=== PATIENT | female | born 1975 ===

== ENCOUNTER 2018-10-24 17:30 | Emergency (ER) | payer BC ==
[2018-10-24 17:43] VITALS: BP 152/86
[2018-10-24] MEDS ORDERED: NS 0.9% 1000 ML** 1,000 ML IV ONE (18:00)
--- NOTE | 2018-10-24 18:02 | UC ---
Headache HPI - HPI Summary HPI Summary: 43-year-old female comes in with a chief complaint of sudden onset of the worst headache of her life. Started a little bit after 5 PM today about 40 minutes ago. Headache started in the frontal area and has been moving over the top of her head to the back of her head. Worse is an 8 out of 10. Minimal nausea and no vision change no weakness no numbness. No difficulty with speech. Patient did take 2 tablets of a headache medication that have acetaminophen aspirin and caffeine. Headaches about 7 out of 10 right now. No prior history of similar headaches. - History Of Current Complaint Chief Complaint: UCHeadache Stated Complaint: HEADACHE Time Seen by Provider: 10/24/18 17:37 Pain Intensity: 7 - Allergies/Home Medications Allergies/Adverse Reactions: Allergies Allergy/AdvReac Type Severity Reaction Status Date / Time No Known Allergies Allergy Verified 10/24/18 17:43 Home Medications: Home Medications NK [No Home Medications Reported] 10/24/18 [History Confirmed 10/24/18] PMH/Surg Hx/FS Hx/Imm Hx Previously Healthy: Yes - Surgical History Surgical History: None - Family History Known Family History: Positive: Non-Contributory - Social History Alcohol Use: Weekly Substance Use Type: None Smoking Status (MU): Never Smoked Tobacco Review of Systems All Other Systems Reviewed And Are Negative: Yes Constitutional: Positive: Negative Skin: Positive: Negative Eyes: Positive: Negative ENT: Positive: Negative Respiratory: Positive: Negative Cardiovascular: Positive: Negative Gastrointestinal: Positive: Nausea Motor: Positive: Negative Neurovascular: Positive: Negative Musculoskeletal: Positive: Negative Neurological: Positive: Headache Psychological: Positive: Negative Is Patient Immunocompromised?: No Physical Exam Triage Information Reviewed: Yes Appearance: Well-Appearing, Well-Nourished, Pain Distress - mild/moderate Vital Signs: Initial Vital Signs Temp 96.4 F 10/24/18 17:41 Pulse 69 10/24/18 17:41 Resp 18 10/24/18 17:41 BP 152/86 10/24/18 17:41 Pulse Ox 100 10/24/18 17:41 Vital Signs Reviewed: Yes Eyes: Positive: Conjunctiva Clear, Other: - perrla/eomi, minimal photophobia Neck: Positive: Supple Respiratory: Positive: Lungs clear, Normal breath sounds, No respiratory distress Cardiovascular: Positive: RRR Musculoskeletal Exam: Normal Musculoskeletal: Positive: Strength Intact, ROM Intact Neurological Exam: Normal Neurological: Positive: Alert, Muscle Tone Normal Psychological Exam: Normal Psychological: Positive: Normal Response To Family, Age Appropriate Behavior Skin: Positive: Rashes Headache Course/Dx - Course Course Of Treatment: Transferred by ambulance to the Emergency Department for acute sudden onset of worse headache of life with no prior Hx of headaches. - Differential Dx/Diagnosis Provider Diagnosis: Headache Discharge - Sign-Out/Discharge Documenting (check all that apply): Patient Departure All imaging exams completed and their final reports reviewed: No Studies - Discharge Plan Condition: Stable Disposition: TRANS HIGHER LVL OF CARE FAC Referrals: No Primary Care Phys,NOPCP [Primary Care Provider] - - Billing Disposition and Condition Condition: STABLE Disposition: Trans Higher Lvl of Care Fac
== END 2018-10-24 18:38 | disposition short-term general hospital (02) ==
LOC: UCEAST 17:30
DX: R51 Headache (principal)
CPT/HCPCS: 99203; G0463

== ENCOUNTER 2018-10-24 18:46 | Emergency (ER) | payer BC ==
--- NOTE | 2018-10-24 18:54 | ED ---
Headache - HPI Summary HPI Summary: 43 year old F brought in by [facility] from [facility] to [facility] with a chief complaint of sudden onset frontal headache radiating to the back of her head as she was leaving her house at 17:10 today. The patient rates the pain _/10 in severity. Symptoms aggravated by nothing. Symptoms alleviated by nothing. Patient denies vision changes, slurred speech, weakness, nausea, vomiting. In between the time the patient left to go to [facility] and the time she was leaving the store, which was about 5 minutes, the headache developed into a pounding headache. Patient denies hx migraines and hx headaches. LNMP was a couple of week ago. - History Of Current Complaint Stated Complaint: HEADACHE PER EMS Hx Obtained From: Patient Onset/Duration: Started hours ago - 1709, Still Present Initially Headache Was: Mild Currently Pain Is: Severe Timing: Constant Character: Pressure Location of Headache: Frontal Radiates to: Back of head Aggravating Factor: Nothing Allevating Factors: Nothing Associated Signs And Symptoms: Negative - vision changes, slurred speech, weakness, nausea, vomiting - Allergies/Home Medications Allergies/Adverse Reactions: Allergies Allergy/AdvReac Type Severity Reaction Status Date / Time No Known Allergies Allergy Verified 10/24/18 17:43 PMH/Surg Hx/FS Hx/Imm Hx Previously Healthy: No Endocrine/Hematology History: Denies: Hx Diabetes Cardiovascular History: Denies: Hx Hypertension Neurological History: Denies: Hx Headaches, Hx Migraine - Surgical History Surgery Procedure, Year, and Place: [place] teeth - Family History Known Family History: Negative: Cardiac Disease, Hypertension, Diabetes - Social History Alcohol Use: Weekly Hx Substance Use: No Substance Use Type: Reports: None Hx Tobacco Use: No Smoking Status (MU): Never Smoked Tobacco Review of Systems Negative: Blurred Vision Negative: Vomiting, Nausea Neurological: Negative - slurred speech Positive: Headache. Negative: Weakness All Other Systems Reviewed And Are Negative: Yes Physical Exam - Summary Physical Exam Summary: Appearance: Well-appearing, Well-nourished, lying in bed comfortably Skin: Warm, dry, no obvious rash Eyes: sclera anicteric, no conjunctival pallor ENT: mucous membranes moist, pharynx appears normal Neck: Supple, nontender Respiratory: Clear to auscultation, no signs of respiratory distress Cardiovascular: Normal S1, S2. No murmurs. Normal distal pulses in tibial and radial bilaterally. Abdomen: Soft, nontender, normal active bowel sounds present Musculoskeletal: Normal, Strength/ROM Intact Neurological: A&Ox3, awake and alert, mentation is normal, speech is fluent and appropriate Psychiatric: affect is normal, does not appear anxious or depressed Triage Information Reviewed: Yes Vital Signs Reviewed: Yes Diagnostics - Laboratory Lab Statement: Any lab studies that have been ordered have been reviewed, and results considered in the medical decision making process. - CT Brain CT Interpretation Completed By: Radiologist Summary of CT Findings: No acute intracranial abnormality. ED physician has reviewed this report. Headache Course/Dx - Course Course Of Treatment: 43 year old F brought in by [facility] from [facility] to [facility] with a chief complaint of sudden onset frontal headache radiating to the back of her head as she was leaving her house at 17: 10 today. Patient denies vision changes, slurred speech, weakness, nausea, vomiting. In between the time the patient left to go to [facility] and the time she was leaving the store, which was about 5 minutes, the headache developed into a pounding headache. Patient denies hx migraines and hx headaches. Physical exam findings: Unremarkable. CT Brain reveals, per radiologist, No acute intracranial abnormality. CSF results with no significant abnormalities except for _. In the ED course, the patient was given Percocet. C7 analysis notes normal protein and glucose. Of special interest was the red blood cell count. It should be noted that this was a traumatic tap with blood obtained on initial pass. When I was able to get spinal fluid, it appeared clear and colorless. Her scalp analysis of tube 1 showed over 4000 red blood cells, but this dropped to approximately 270 on 24 which is consistent with a traumatic tap. With a normal CT scan and CSF as noted above, I believe the patient is safe for discharge and no specific follow-up was required lesser headache recurs. - Diagnoses Differential Diagnosis/HQI/PQRI: Epidural Hematoma, Meningitis, Migraine, Subarachnoid Hemorrhage, Tension Headache Provider Diagnoses: Headache Discharge - Sign-Out/Discharge Documenting (check all that apply): Patient Departure Patient Received Moderate/Deep Sedation with Procedure: No - Discharge Plan Condition: Good Disposition: HOME Patient Education Materials: Acute Headache (ED) Referrals: Domingo Ordonez MD [Medical Doctor] - If Needed Additional Instructions: The CT scan and spinal fluid analysis did not show any definite sign of bleeding , which for all intents and purposes rules out the serious condition of bleeding from an aneurysm. If you continue to have any trouble with headaches I would recommend you see a neurologist or primary care doctor, as other tests and treatments could be needed beyond what we do here in the ED. - Billing Disposition and Condition Condition: GOOD Disposition: Home - Attestation Statements Document Initiated by Sheba: Yes Documenting Scribe: Aida Smith Provider For Whom Sheba is Documenting (Include Credential): Ruel Cervantes MD Scribe Attestation: IAida, scribed for Ruel Cervantes MD on 10/29/18 at 1309. Scribe Documentation Reviewed: Yes Provider Attestation: The documentation as recorded by the Aida jamison accurately reflects the service I personally performed and the decisions made by me, Ruel Cervantes MD Status of Scribsherrie Document: Viewed
[2018-10-24] MEDS ORDERED: oxyCODONE/Acetamin 5/325 MG* TAB PO ONE (20:45)
[2018-10-24 21:09] LABS: Body Fluid Source Cerebral Spinal
[2018-10-24 21:11] LABS: Body Fluid Source Cerebral Spinal
[2018-10-24 21:25] LABS: CSF Glucose 62 mg/dL (40-70)
[2018-10-24 22:23] LABS: Body Fluid Mono 25 %
[2018-10-24 22:28] LABS: Body Fluid Mono 20 %
[2018-10-24] MEDS ORDERED: Prochlorperazine TAB* 10 MG PO ONE (22:39)
[2018-10-24 23:03] VITALS: BP 117/70
== END 2018-10-24 23:00 | disposition home or self-care (01) ==
LOC: ED 18:46
DX: R51 Headache (principal)
CPT/HCPCS: 36415; 70450; 82945; 84157; 87070; 87205; 89051; 99283; A9270-GY; Q0164

== ENCOUNTER 2019-04-22 13:06 | Observation (INO) | payer BC ==
[2019-04-22] MEDS ORDERED: Tetan/Diph/Pertus SYR(Tdap)* 0.5 ML SYR(BOOSTRIX) use SYR contains LATEX IM ONE (13:13)
[2019-04-22] MEDS ORDERED: ceFAZolin 1 GM ADVAN(*) 1 GM in NS 0.9% 50 ML* 50 ML IVPB ONE ×2 (13:14→14:28)
--- NOTE | 2019-04-22 13:14 | ED ---
Lower Extremity - HPI Summary HPI Summary: Patient is a 43-year-old female who presents emergency department for isolated right ankle injury that occurred just prior to arrival. Patient states she slipped down a few steps and twisted right ankle. Denies head injury or loss of consciousness. No significant past medical history. Unaware of last tetanus immunization. Denies numbness, tingling to right lower extremity. Associated symptoms of deformity and small wound. Symptoms are moderate in severity. Movement makes symptoms worse. Nothing makes symptoms better. - History of Current Complaint Stated Complaint: FALL- POSS RIGHT ANKLE FRACTURE PER EMS Time Seen by Provider: 04/22/19 13:13 Hx Obtained From: Patient - Allergies/Home Medications Allergies/Adverse Reactions: Allergies Allergy/AdvReac Type Severity Reaction Status Date / Time No Known Allergies Allergy Verified 10/24/18 17:43 PMH/Surg Hx/FS Hx/Imm Hx Previously Healthy: Yes Endocrine/Hematology History: Denies: Hx Diabetes Cardiovascular History: Denies: Hx Hypertension Neurological History: Denies: Hx Headaches, Hx Migraine - Surgical History Surgery Procedure, Year, and Place: [place] teeth - Family History Known Family History: Positive: Non-Contributory Negative: Cardiac Disease, Hypertension, Diabetes - Social History Occupation: Employed Full-time Lives: With Family Alcohol Use: Weekly Hx Substance Use: No Substance Use Type: Reports: None Hx Tobacco Use: No Smoking Status (MU): Never Smoked Tobacco Review of Systems Positive: Other - Right ankle injury Positive: Other - wound right ankle Neurological: Negative Negative: Weakness, Paresthesia, Numbness All Other Systems Reviewed And Are Negative: Yes Physical Exam Triage Information Reviewed: Yes Vital Signs Reviewed: Yes Appearance: Positive: Pain Distress - Patient sitting up in bed, appears in pain but nontoxic. Skin: Positive: Warm, Dry Head/Face: Positive: Normal Head/Face Inspection Eyes: Positive: Normal, EOMI Neck: Positive: Supple Musculoskeletal: Positive: Other - Deformity noted to right ankle. Roughly 1 cm wound noted over medial aspect of right ankle. Good palpable pedal pulse. + 2 capillary refill. No proximal leg pain. Neurological: Positive: Normal, CN Intact II-III Psychiatric: Positive: Affect/Mood Appropriate Procedures - Sedation Patient Received Moderate/Deep Sedation with Procedure: No Diagnostics - Laboratory Result Diagrams: 04/22/19 16:32 04/22/19 16:32 Lab Statement: Any lab studies that have been ordered have been reviewed, and results considered in the medical decision making process. Lower Extremity Course/Dx - Course Course Of Treatment: Pt. with likely fracture dislocation of right ankle. Neurovascularly intact. IV placed and pt. and IV pain medications and antibiotics for possible open fracture. Tetanus updated. Xray shows fracture/ dislocation. 1426: Ortho paged. 1450: Case discussed with [facility] Dr. Villanueva, he would like ct scan for further eval. He plans to take pt. to OR later today. Prerna Pozo, PAC with ortho. performed hematoma block, reduced and splinted ankle. Pt. admitted to ortho. service. - Diagnoses Differential Diagnosis/HQI/PQRI: Positive: Contusion, Dislocation, Fracture ( Closed), Sprain, Strain Provider Diagnoses: Open fracture of distal lateral malleolus of ankle Discharge ED - Sign-Out/Discharge Documenting (check all that apply): Patient Departure - Discharge Plan Condition: Stable Disposition: ADMITTED TO [facility] - Billing Disposition and Condition Condition: STABLE Disposition: Admitted to [facility] - Attestation Statements Provider Attestation: pt seen by midlevel provider independently, based on their assessment, it was not necessary to present the case to me but I was available for consultation. I did not form a physician-patient relationship with the patient. The chart however, has been reviewed. am signing this note strictly in an administrative capacity.
[2019-04-22] MEDS ORDERED: Morphine 4 MG/ML VIAL (1 ml) 4 MG/ML VIAL IV ONE ×2 (13:18→14:58)
[2019-04-22] MEDS ORDERED: Ondansetron INJ* 2 MG/ML VIAL IV ONE (13:18)
[2019-04-22] MEDS ORDERED: Lidocaine 1% MPF ** 5 ML VIAL INJ ONE (14:57)
[2019-04-22] MEDS ORDERED: Morphine INJ* 2 MG/ML 1 ML SYRINGE (TWO MG - NEW SYRINGE VERSION) IV PRN ×2 (15:58→18:32)
[2019-04-22] MEDS ORDERED: diPHENhydraMINE PO* 25 MG PO PRN ×2 (15:58→18:32)
[2019-04-22] MEDS ORDERED: Cyclobenzaprine TAB* 10 MG PO PRN ×2 (15:58→18:32)
[2019-04-22] MEDS ORDERED: Ondansetron ODT TAB* 4 MG PO PRN ×2 (15:58→18:32)
[2019-04-22] MEDS ORDERED: Magnesium Hydroxide LIQ* 30 ML UDC PO PRN ×2 (15:58→18:32)
[2019-04-22] MEDS ORDERED: traMADol TAB* 50 MG PO PRN ×2 (15:58→18:32)
[2019-04-22] MEDS ORDERED: diPHENhydraMINE IV* 50 MG/ML 1 ml VIAL (BENADRYL) IV PRN ×2 (15:58→18:32)
[2019-04-22] MEDS ORDERED: Ondansetron INJ* 2 MG/ML VIAL IV PRN ×2 (15:58→18:32)
[2019-04-22] MEDS ORDERED: oxyCODONE TAB* 5 MG TAB PO PRN ×4 (15:58→18:32)
[2019-04-22] MEDS ORDERED: Lactated Ringers 1000 ML Bag* 1,000 ML IV SCH ×2 (16:00→18:00)
[2019-04-22 16:41] LABS: ABS Lymphocytes 1.2 10^3/ul (1.0-4.8); ABS Monocytes 0.5 10^3/ul (0-0.8); ABS Neutrophils 6.7 10^3/ul (1.5-7.7); Eosinophil % 0.1 %; Hematocrit 38 % (35-47); Hemoglobin 13.2 g/dL (12.0-16.0); Lymphocyte % 14.3 %; Mean Corpuscular HGB Conc 35 g/dL (31-36); Mean Corpuscular Hemoglobin 31 pg (27-31); Mean Corpuscular Volume 90 fL (80-97); Mean Platelet Volume 8.2 fL (7.4-10.4); Platelet Count 263 10^3/uL (150-450); Red Blood Count 4.21 10^6 /uL (3.70-4.87); Red Cell Distribution Width 13 % (10-15); White Blood Count 8.5 10^3/uL (3.5-10.8)
[2019-04-22 16:52] LABS: INR 0.95 (0.82-1.09)
[2019-04-22 16:57] LABS: Anion Gap 9 mmol/L (2-11); BUN/Creatinine Ratio 14.1 (8-20); Blood Urea Nitrogen 11 mg/dL (6-24); CO2 Carbon Dioxide 24 mmol/L (22-32); Calcium 9.3 mg/dL (8.6-10.3); Chloride 102 mmol/L (101-111); EGFR African American 98.5 (>60); EGFR Non-African American 81.4 (>60); Glucose 97 mg/dL (70-100); Sodium 135 mmol/L (135-145)
--- NOTE | 2019-04-22 17:01 | HP ---
ADMISSION HISTORY AND PHYSICAL: DATE OF ADMISSION: 04/23/19 ATTENDING ORTHOPEDIC PROVIDER: Dr. Evan Villanueva.* (DICTATED BY ANTWAN MONTGOMERY) CHIEF COMPLAINT: Right open ankle fracture. HISTORY OF PRESENT ILLNESS: The patient is a 43-year-old female. She was at work today carrying boxes when she tripped and turned her right ankle resulting in immediate pain. She was brought to the emergency room at [facility]. She has deformity of her right ankle. She has sharp severe pain with question of open fracture, sharp severe pain of the right ankle without any radiation. She had no other injuries. She did not hit her head. She did not loose consciousness. She last ate food at 9 a.m. this morning. She last drank fluids at noon today. She has no history of heart attack, stroke, blood clot, or anesthesia complications. PAST MEDICAL HISTORY: Low vitamin D. PAST SURGICAL HISTORY: None. DRUG ALLERGIES: No known drug allergies. FAMILY HISTORY: The patient's family has no known adverse reactions from anesthesia. SOCIAL HISTORY: The patient lives alone with her cat. She works at [employer] in the [employer]. REVIEW OF SYSTEMS: General: No fever, chills, recent illness. HEENT: No headache, no head trauma. Cardiac: No chest pain. No history of ME. Respiratory: No shortness of breath. GI: No abdominal pain, nausea, vomiting , diarrhea. : No burning with urination. Musculoskeletal: Positive for right ankle pain. No other pain of extremities. Neuro: Denies any decreased sensation, numbness or tingling of extremities. PHYSICAL EXAM: GENERAL: Well appearing, no acute distress. VITAL SIGNS: Temperature 98.3, pulse rate 88, respiratory rate 18, oxygen saturation 99%, blood pressure 148/88. HEENT: Normocephalic, atraumatic. Extraocular movements intact. LUNGS: Clear to auscultation bilaterally. CARDIAC: S1, S2. Regular rate and rhythm. ABDOMEN: Bowel sounds normoactive, soft, nontender. No guarding. No rigidity. EXTREMITIES: Moves bilateral upper extremities and left lower extremity. Skin envelope is intact. Nontender to palpation. Able to flex and extend at all joints without pain. Right lower extremity: There is abrasion over medial malleolus. This was examined after hematoma block. I do not believe that the abrasion itself is open. There is a pinhole also over the medial malleolus. I cannot confirm whether this is open or not. Remainder of the right lower extremity skin envelope is intact. She is tender to palpation over the ankle and there is obvious deformity. She is nontender over the knee and hip. Able to flex and extend at MTPs, knee, and hip without any pain. DP pulses 2+. Sensation intact to light touch distally. Capillary refill less than 2 seconds distally. DIAGNOSTIC STUDIES/LAB DATA: Ankle x-ray shows fracture of the distal fibula with lateral subluxation of the talus to the talocrural joint. A CT scan was ordered to better characterize this. ASSESSMENT: Fracture of the distal fibula, lateral subluxation of the talus to talocrural joint, possible open fracture, cannot rule out open fracture. Procedure, timeout, and consent were performed with Dr. Mayer and ANTONIO Bolaños , present for both hematoma block and right ankle reduction. The patient was placed in a well-padded short leg splint after hematoma block was completed. Postreduction x-rays revealed satisfactory reduction. PLAN: The patient will be nonweightbearing. She will keep splint clean, dry, and intact. She will elevate and ice. She will be placed on Ancef 2 g IV q.8 hours. Preop testing includes CBC, BMP, INR, chest x-ray, EKG, and CT scan. The patient will go to the operating room today with Dr. Villanueva. ANTWAN MONTGOMERY [id number]/[facility] #: [id number] [facility] HEALTH SYSTEMDenise
--- NOTE | 2019-04-22 17:31 | HP ---
H&P (Free Text) History and Physical: Error
--- NOTE | 2019-04-22 17:45 | CONSULT ---
Consult Consult: Pulmonary consultation report Date of consultation: 04/22/2019 Consultation requested by :Prerna Pozo NP Reason for consultation: evaluation of abnormal chest x-ray History of present illness: Patient is 43-year-old obese female with no past medical history. Patient presented to the emergency room for evaluation of isolated right ankle injury. She slipped down a few steps while carrying weights and twisted right ankle. Denies injury to the head or loss of consciousness. Patient denied any trauma to her chest. Patient denies shortness of breath, chest pain, palpitations, dizziness. Patient denies numbness or tingling to the right lower extremity. Patient with pain in the extremity. Movement makes her pain worse. Further evaluation in the emergency room included lower extremities CT scan that showed open fracture of the distal fibula. Patient also had chest x-ray. I personally reviewed chest x-ray images and with the patient-patient noted to have elevated right hemidiaphragm. There is no associated atelectasis of the right lung. No evidence of pleural effusion noted. No evidence of rib fractures noted. PMHx: Low Vit D PSHx: [place] tooth extraction All: NKDA FHx: No h/o DM, CAD Social Hx: Lives alone at home. No smoking or drug abuse, occasional ETOH intake. ROS: All 12 systems reviewed and as per HPI Active Medications Generic Name Dose Route Start Last Admin Trade Name Freq PRN Reason Stop Dose Admin Acetaminophen 975 mg 04/22/19 22:00 Tylenol Tab* PO Q8HR GISSELL Bisacodyl 10 mg 04/24/19 15:58 Dulcolax Supp* RI DAILY PRN CONSTIPATION Cyclobenzaprine HCl 10 mg 04/22/19 15:58 Flexeril Tab* PO Q6H PRN SPASMS Diphenhydramine HCl 25 mg 04/22/19 15:58 Benadryl Iv* IV Q6H PRN PRURITIS Diphenhydramine HCl 25 mg 04/22/19 15:58 Benadryl Po* PO Q6H PRN PRURITIS Docusate Sodium 100 mg 04/22/19 21:00 Colace Cap* PO BID GISSELL Enoxaparin Sodium 40 mg 04/23/19 12:00 Lovenox(*) SUBCUT Q24H GISSELL Lactated Ringer's 1,000 mls @ 100 mls/hr 04/22/19 16:00 Lactated Ringers 1000 Ml Bag* IV PER RATE GISSELL Cefazolin Sodium 2 gm/ Sodium 100 mls @ 200 mls/hr 04/22/19 18:00 Chloride IVPB Q8H GISSELL Lactulose 30 ml 04/22/19 15:58 Lactulose* PO BID PRN CONSTIPATION Magnesium Hydroxide 30 ml 04/22/19 21:00 Milk Of Magnesia Liq* PO BID GISSELL Magnesium Hydroxide 30 ml 04/22/19 15:58 Milk Of Magnesia Liq* PO Q6H PRN CONSTIPATION Morphine Sulfate 2 mg 04/22/19 15:58 Morphine Inj (Syringe))* IV Q4H PRN Pain - Unrelieved Multivitamins 1 tab 04/23/19 09:00 Theragran Tab* PO DAILY GISSELL Ondansetron HCl 4 mg 04/22/19 15:58 Zofran Inj* IV Q6H PRN NAUSEA Ondansetron HCl 4 mg 04/22/19 15:58 Zofran Odt Tab* PO Q6H PRN NAUSEA Oxycodone HCl 10 mg 04/22/19 15:58 Roxycodone Tab* PO Q4H PRN Pain - Breakthrough Oxycodone HCl 5 mg 04/22/19 15:58 Roxycodone Tab* PO Q4H PRN Pain - Breakthrough Tramadol HCl 50 mg 04/22/19 15:58 Ultram* PO Q6HR PRN PAIN - MODERATE O/E: Pt in bed in NAD, RLE in cast Vital Signs Temp Pulse Resp BP Pulse Ox 98.3 F 74 16 148/92 97 04/22/19 13:12 04/22/19 15:06 04/22/19 15:02 04/22/19 15:35 04/22/19 15:06 HEENT: PERRLA Lungs: Decreased at rt base, no wheeze, no crackles CVS: S1, S2+ Abd: Obese, BS+ Ext: RLE in cast Neuro: No focal deficits Skin: No rash Laboratory Results - last 24 hr 04/22/19 04/22/19 04/22/19 16:32 16:32 16:32 WBC 8.5 RBC 4.21 Hgb 13.2 Hct 38 MCV 90 MCH 31 MCHC 35 RDW 13 Plt Count 263 MPV 8.2 Neut % (Auto) 78.9 Lymph % (Auto) 14.3 Lea % (Auto) 6.3 Eos % (Auto) 0.1 Baso % (Auto) 0.4 Absolute Neuts (auto) 6.7 Absolute Lymphs (auto) 1.2 Absolute Monos (auto) 0.5 Absolute Eos (auto) 0.0 Absolute Basos (auto) 0.0 Absolute Nucleated RBC 0.0 Nucleated RBC % 0.0 INR (Anticoag Therapy) 0.95 Sodium 135 Potassium 4.0 Chloride 102 Carbon Dioxide 24 Anion Gap 9 BUN 11 Creatinine 0.78 Est GFR ( Amer) 98.5 Est GFR (Non-Af Amer) 81.4 BUN/Creatinine Ratio 14.1 Glucose 97 Calcium 9.3 I/R: Patient with evidence of elevated right hemidiaphragm. I do not think it is resultant of current trauma. I think she might have had chronically elevated right hemidiaphragm which could be congenital. Unfortunately we do not have prior chest x-rays for comparison. She is asymptomatic at this time. She does not have complaints of chronic shortness of breath. She is not hypoxemic at rest, unable to ambulate her with her injusry. There is no evidence of pleural effusion and no reason to suspect hemothorax. Patient is to have surgical repair of the fracture I would not think she would be at higher risk for anesthesia complications. Would recommend monitoring of pulse ox postoperatively. She would need incentive spirometry post surgery. I would clear her from pulmonary perspective to undergo needed surgery. Please feel free t ocontact me iwth any questions or concerns.
[2019-04-22] MEDS ORDERED: ceFAZolin VIAL(*) 2 GM in NS 0.9% 100 ML* 100 ML IVPB SCH (18:00)
[2019-04-22] MEDS ORDERED: ceFAZolin 2 GM in NS PREMIX(*) 2 GM/100 ML BAG IVPB ONE (18:09)
[2019-04-22] MEDS ORDERED: Bupivacaine 0.25% SDV* 30 ML ONE (19:03)
--- NOTE | 2019-04-22 20:15 | PN ---
Progress Note - Progress Note Date of Service: 04/22/19 SOAP: See H&P by Prerna Pozo. I agree. Wrinkling of skin on exam in PACU. Discussed with patient and family planned surgery, risks and potential complications. To OR for I&D, ORIF versus external fixation lateral malleolus, unlikely but possible ORIF posterior malleolus and syndesmosis. Had I&D and closed reduction in ED, has DSD and splint in place and has been getting IV abx since the ED.
[2019-04-22] MEDS ORDERED: Magnesium Hydroxide LIQ* 30 ML UDC PO SCH (21:00)
[2019-04-22] MEDS ORDERED: Docusate CAP* 100 MG PO SCH (21:00)
[2019-04-22] MEDS ORDERED: fentaNYL* 50 MCG/ML 2 ML VIAL (100 MCG VIAL) ONE (21:05)
[2019-04-22] MEDS ORDERED: Midazolam* 1 MG/ML 2 ML VIAL (2 MG) ONE (21:05)
[2019-04-22] MEDS ORDERED: Dexamethasone IV* 4 MG/ML 1 ML (4 MG) ONE (21:05)
[2019-04-22] MEDS ORDERED: Propofol* 10 MG/ML 20 ML BTL ONE (21:05)
[2019-04-22 21:51] LABS: HCG Pregnancy < 0.60 mIU/mL
[2019-04-22] MEDS ORDERED: Acetaminophen TAB* 325 MG PO SCH (22:00)
[2019-04-22] MEDS ORDERED: Lidocaine 2% PF * 5 ML VIAL ONE (22:15)
[2019-04-23] MEDS: Acetaminophen TAB* 325 MG PO SCH ×5 (00:10→13:06)
[2019-04-23] MEDS ORDERED: Gabapentin CAP(*) 300 MG ONE (00:26)
[2019-04-23] MEDS ORDERED: ceFAZolin VIAL(*) 2 GM in NS 0.9% 100 ML* 100 ML IVPB SCH (02:00)
[2019-04-23] MEDS: Magnesium Hydroxide LIQ* 30 ML UDC PO SCH ×2 (03:47→08:30)
[2019-04-23] MEDS: Docusate CAP* 100 MG PO SCH ×2 (03:47→08:28)
[2019-04-23] MEDS: ceFAZolin* 2 GM* Q8H (Duplex) IVPB SCH ×2 (06:01→13:09)
[2019-04-23] MEDS ORDERED: Aspirin TAB* 325 MG PO SCH (09:00)
[2019-04-23] MEDS ORDERED: Vitamin THERAPEUTIC TAB PO SCH ×2 (09:00)
[2019-04-23 11:42] VITALS: BP 131/75
[2019-04-23] MEDS ORDERED: Enoxaparin(*) 40 MG/0.4 ML SYR SUBCUT SCH ×2 (12:00)
--- NOTE | 2019-04-23 23:52 | DS ---
Orthopedic Discharge Summary - Discharge Summary Date of Admission:04/23/19 Date of Discharge: 04/24/19 Date of Surgery: 04/23/19 Attending Orthopedic Provider: Evan Villanueva MD Pre-operative Diagnosis: Right ankle bimalleolar ankle fracture Operative Procedure: ORIF Right ankle fracture Disposition of Patient: Home Condition of Patient: Stable History: ABDI COOK is a 43 year old F Who fell on 04/23/19. She was brought to [facility] ED where Xrays showed an open bimalleolar fx. Patient underwent a closed reduction in the ED and a short leg splint was placed. She has elected to undergo an ORIF right ankle. Hospital Course: ABDI was admitted to [facility] on 04/23/19. Patient underwent a ORIF right ankle without complication followed by a brief recovery in PACU and transfer to the Short Stay Surgical Unit in stable condition. Physical therapy and occupational therapy also participated in this patients care. Post-op day 1: patient was alert and in no acute distress. Splint was clean, dry and intact. Operative extremity dorsiflexion and plantarflexion intact, sensation intact to light touch distally, She received 24 hours of IV Ancef. Patient was deemed to be medically and orthopedically stable for discharge. Physical therapy goals were met. She was discharged home on 04/24/19 in a stable condition. Home Medications Medication Instructions Recorded Confirmed Type Aspirin TAB* [Aspirin 325 MG TAB*] 325 mg PO BID tab 04/23/19 Rx oxyCODONE TAB* [Roxycodone TAB 5 5 mg PO Q4H PRN tab 04/23/19 Rx mg*] Discharge Instructions following Orthopedic Surgery: Activity: * Non Weight Bearing right lower extremity * Continue physical therapy and occupational therapy exercises as shown Wound care: * OK to shower on post-op day 3, no swimming, or submerging wound. Keep splint covered Call Orthopedic office for: * Increased drainage * Redness * Increased pain * Fever Go to ER with shortness of breath or chest pain. Diet: * Regular diet * Increase fluids and fiber to prevent constipation. * Continue to use stool softeners, call office if no bowel motion within 48 hours. Medications See Home Medication List in your packet for medications that you should take after discharge. DVT Prophylaxis: Aspirin Dosin mg twice a day Pain Control: Oxycodone Dosin mg 1-2 tabs by mouth every 4-6 hours as needed for pain. Maximum of 10 tabs per day. Antibiotic: Keflex 500mg TID for 7 days FOLLOW UP: Follow up with Dr. Villanueva Within 10-14 days, call for appointment Please call our office with any questions or concerns ([phone])
--- NOTE | 2019-04-23 23:52 | PN ---
Progress Note - Progress Note Date of Service: 04/23/19 SOAP: Subjective: Pt seen and examined at bedside. No complaint of pain. Denies CP, SOB, F/C. Vital Signs: Temp Pulse Resp BP Pulse Ox 98.7 F 95 18 131/75 97 04/23/19 11:41 04/23/19 11:41 04/23/19 13:09 04/23/19 11:41 04/23/19 11:41 Laboratory Last Values WBC 8.5 10^3/uL (3.5-10.8) 04/22/19 16:32 RBC 4.21 10^6 /uL (3.70-4.87) 04/22/19 16:32 Hgb 13.2 g/dL (12.0-16.0) 04/22/19 16:32 Hct 38 % (35-47) 04/22/19 16:32 MCV 90 fL (80-97) 04/22/19 16:32 MCH 31 pg (27-31) 04/22/19 16:32 MCHC 35 g/dL (31-36) 04/22/19 16:32 RDW 13 % (10-15) 04/22/19 16:32 Plt Count 263 10^3/uL (150-450) 04/22/19 16:32 MPV 8.2 fL (7.4-10.4) 04/22/19 16:32 Neut % (Auto) 78.9 % 04/22/19 16:32 Lymph % (Auto) 14.3 % 04/22/19 16:32 [place] % (Auto) 6.3 % 04/22/19 16:32 Eos % (Auto) 0.1 % 04/22/19 16:32 Baso % (Auto) 0.4 % 04/22/19 16:32 Absolute Neuts (auto) 6.7 10^3/ul (1.5-7.7) 04/22/19 16:32 Absolute Lymphs (auto) 1.2 10^3/ul (1.0-4.8) 04/22/19 16:32 Absolute Monos (auto) 0.5 10^3/ul (0-0.8) 04/22/19 16:32 Absolute Eos (auto) 0.0 10^3/ul (0-0.6) 04/22/19 16:32 Absolute Basos (auto) 0.0 10^3/ul (0-0.2) 04/22/19 16:32 Absolute Nucleated RBC 0.0 10^3/ul 04/22/19 16:32 Nucleated RBC % 0.0 04/22/19 16:32 INR (Anticoag Therapy) 0.95 (0.82-1.09) 04/22/19 16:32 Sodium 135 mmol/L (135-145) 04/22/19 16:32 Potassium 4.0 mmol/L (3.5-5.0) 04/22/19 16:32 Chloride 102 mmol/L (101-111) 04/22/19 16:32 Carbon Dioxide 24 mmol/L (22-32) 04/22/19 16:32 Anion Gap 9 mmol/L (2-11) 04/22/19 16:32 BUN 11 mg/dL (6-24) 04/22/19 16:32 Creatinine 0.78 mg/dL (0.51-0.95) 04/22/19 16:32 Est GFR ( Amer) 98.5 (>60) 04/22/19 16:32 Est GFR (Non-Af Amer) 81.4 (>60) 04/22/19 16:32 BUN/Creatinine Ratio 14.1 (8-20) 04/22/19 16:32 Glucose 97 mg/dL (70-100) 04/22/19 16:32 Calcium 9.3 mg/dL (8.6-10.3) 04/22/19 16:32 Beta HCG, Quant < 0.60 mIU/mL 04/23/19 04:21 Objective: A&O X3, NAD Splint C/D/I, Brisk cap refill, Wiggles toes, Sensation intact to light touch. Assessment: 43 yo female s/p ORIF right ankle fx POD #1 Plan: OOB, PT/OT NWB RLE IV abx ASA for DVT prophylaxis D/C home today after abx complete
[2019-04-24] MEDS ORDERED: Bisacodyl SUPP* 10 MG SUPP PR PRN ×2 (15:58)
--- NOTE | 2019-04-25 03:43 | OP ---
OPERATIVE REPORT: DATE OF OPERATION: 04/22/19 DATE OF : 79 SURGEON: Evan Villanueva MD RUG INSPECTOR: ANTWAN Calero A physician assistant site manager was required for the length of the procedure for assistance with patient positioning, retraction, and closure. ANESTHESIOLOGIST: Dr. Beena Fairchild. ANESTHESIA: General anesthesia, local anesthesia including a limited amount, approximately 10 cc of Marcaine 0.25% with epinephrine. PRE-OP DIAGNOSIS: Right open bimalleolar fracture, lateral malleolus, posterior malleolus, with medial ankle wound. POST-OP DIAGNOSIS: Right open bimalleolar fracture, lateral malleolus, posterior malleolus, with medial ankle wound. OPERATIVE PROCEDURE: 1. Open reduction internal fixation, right ankle bimalleolar fracture, lateral and posterior malleolus, with lateral fixation. 2. Incision, irrigation, debridement and drainage wound associated with open fracture, right medial ankle. ANTIBIOTICS: Ancef 2 g IV. IV FLUIDS: See Anesthesia note. [id number] TIME: 84 minutes. TOURNIQUET TIME: 88 minutes at 300 mmHg right thigh. COMPLICATIONS: None. ESTIMATED BLOOD LOSS: Minimal. SPECIMEN: None. IMPLANTS: Synthes 1/3 tubular plate, 7-holes. Lag screw with 3.5mm fully threaded cortical screw. Through plate were placed non-locking and locking 3.5mm screws and a 4.0 mm. INDICATIONS FOR PROCEDURE: The patient is a 43-year-old woman, who injured herself on the date of surgery, 04/22/19, with a fall. She had severe pain, swelling and deformity of the right ankle. She was brought to the emergency room at [facility]. Emergency room staff noted a wound about the medial ankle and noted that the bone was visible through that wound. They therefore made the diagnosis of open fracture. Initial radiographs showed an ankle fracture with a significant subluxation and deformity. There is significant lateral translation at the talus and some minimal posterior subluxation at the talus versus a tibia. Prerna Pzoo, orthopedic service PA and I spoke and I had her go down to the emergency room, see the patient and perform a reduction procedure after a hematoma block. This was done as soon as possible to minimize soft tissue swelling and damage as well as articular cartilage damage. Postreduction radiographs showed a significant improvement without any subluxation or dislocation to the ankle joint. Excellent job with reduction. The patient was given Ancef 1 g IV immediately in the emergency department as soon as the fracture was noted to be open. I scheduled her for add-on surgery later that evening at the first available operating room slot. Although, there was no medial malleolus fracture, given the open wound with visible bone and multiple fractures about the ankle, this meets open fracture definitions. I spoke with the patient about risks and potential complications of surgery. She opted to proceed forward. DESCRIPTION OF PROCEDURE: In preoperative holding, the patient signed a written consent. Operative extremity was marked in preoperative holding. The patient was taken back to the operating room and placed supine on the operating room table. Sedated and intubated. Irving bump placed under the right hemipelvis. Bone foam placed under the right lower extremity. Tourniquet was applied to the right thigh. The right lower extremity was prepped and draped. Surgical time-out performed. Esmarch applied and tourniquet elevated to 300 mmHg. It should be noted that we removed the splint that had been placed in the emergency room prior to the prep and drape. I first addressed the medial ankle. At the site of the laceration to the skin, the hole had clotted off with blood. I made a longitudinal incision centered about that clotted off skin defect. I dissected down to bone. We irrigated that wound with 2 L of sterile normal saline. There was no clear foreign material or other contaminated tissue deep to the skin. I excised some of that skin immediately adjacent to the skin tear, that was included in the clotted off blood zone. We then performed closure with buried simple stitches in the subcutaneous layer with Vicryl 2.0 suture and horizontal mattress stitches in the skin using nylon 3.0 suture. With the medial wound washed out, the skin edges excised, incision site closed. We next directed our attention to the lateral ankle. I made a standard skin incision for a lateral ankle operation. Dissected down to bone and fracture. The superficial peroneal nerve and its branches were never visualized during the procedure. The fracture was comminuted, clearly high energy, as had been appreciated on preoperative CT imaging. Fortunately, there was a long oblique section of bone posteriorly that would clearly reduce. There was a small flake of segmental bone, butterfly type fragment anteriorly at the more transverse level of the fracture site anteriorly. I debrided fracture site, irrigated. Performed reduction maneuver. Held reduction of the [address] The small flake fragment anteriorly was not entirely clear the way that was to be positioned. It would almost as if it was just a tiny flake that was longer from superior to inferior than in any other dimension. Thus for that to be anatomically reduced, it would not make reduction or fixation feasible especially in that medial location by sutures or by hardware. However, this was not entirely clear because there was still a little defect between the large fragments anteriorly between them, so it could have been a sandwiched piece of bone fragment. I played around with possible locations of that fragment. Ultimately, I decided to wedge it between the 2 larger fragments which is what I did. Posteriorly, fracture reduction was anatomic. Anteriorly, there was a little bit of gap likely from some bone pulverization from the high energy nature of this injury. However, that gap was filled in with that small fracture fragment piece. I held the 2 large bone fragments together with a 3.5 mm screw placed in lag fashion across the major fracture line from distal and posterior to proximal and anterior. This held the reduction. I then sized plates. I picked a 7- hole plate, Synthes one-third tubular. I contoured the plate. I applied plate and affixed it with nonlocking screws proximal and distal to the fracture line. This brought plate nicely down to bone. C-arm imaging had confirmed excellent reduction prior to plate placement and again confirmed excellent reduction and plate placement. I then filled the plate with locking screws proximally and distally. Irrigation. Closure of deeper fascial tissue with [id number] stitches using Vicryl 2.0 suture. Closure of the subcutaneous tissues with buried simple stitches using Vicryl 3.0 suture. Closure of the skin with a running stitch using nylon 3.0 suture. Some local anesthetic injected about the incision site or just proximal to it. Dressing consisted of an Adaptic medially and a Xeroform laterally followed by 4x4s, sterile Webril. We then applied a plaster splint with a posterior slab followed by a sugar tong overwrapped with an Anthony bandage. The patient was awakened, extubated and transferred to PACU. DISPOSITION: The patient was admitted to my service postoperatively for IV antibiotics to assure 24 hours of IV antibiotics for this open fracture. She was to be nonweightbearing with crutches or a knee scooter. She will follow up with me in approximately 1 week postoperatively prior to going on vacation, to have a wound check and to be converted to a short leg cast. The patient was to be discharged on 7 days of oral antibiotics, Keflex. Pain control as needed. [id number]/[facility] #: [id number] MTDD
== END 2019-04-23 16:30 | disposition home or self-care (01) ==
LOC: ED 13:06 → OR 18:30 → INTOOBSV 04-23 01:33 → SSU 04-23 01:33
PROVIDERS: ADMIT Physician Assistant; ATTEND Orthopaedic Surgery
DX: S82.841B Displaced bimalleolar fracture of right lower leg, initial encounter for open fracture type I or II (principal); W01.0XXA Fall on same level from slipping, tripping and stumbling without subsequent striking against object, initial encounter; Y92.9 Unspecified place or not applicable; R93.89 Abnormal findings on diagnostic imaging of other specified body structures; Z79.82 Long term (current) use of aspirin
CPT/HCPCS: 36415; 71046; 76000; 80048; 84702; 85025; 85610; 90471; 90715; 93005; 96365; 96375; 99284; A9270-GY; C1713; C1776; G0378; J0690; J2270; J2405; J3490